=== PATIENT | male | born 1935 | race Caucasian/White ===

== ENCOUNTER 2016-08-21 11:15 | Outpatient (CLI) | payer MEDICARE, BC ==
[~2016-08-21 11:15] MED LIST: ASPI81TA2 PO; ATOR40TA PO; BENZ0.5T3 PO; CARV3.122 PO; DULO60CA45 PO; FINA5TAB4 PO; LATA2.5D2 EACHEYE; OLAN10TA3 PO; PANT40TA4 PO; RISP0.253 PO; TAMS-12 PO
== END 2016-08-21 23:59 | disposition home health service (06) ==
LOC: WOU 11:15
PROVIDERS: ATTEND Surgery
DX: T81.31XA Disruption of external operation (surgical) wound, not elsewhere classified, initial encounter (principal); Z93.2 Ileostomy status; E78.5 Hyperlipidemia, unspecified; I35.0 Nonrheumatic aortic (valve) stenosis; F32.9 Major depressive disorder, single episode, unspecified; F03.90 Unspecified dementia, unspecified severity, without behavioral disturbance, psychotic disturbance, mood disturbance, and anxiety
CPT/HCPCS: 11042; A6402

== ENCOUNTER 2016-09-11 12:45 | Outpatient (CLI) | payer MEDICARE, BC | END 2016-09-11 23:59 | disposition home health service (06) | LOC: WOU 12:45 | PROVIDERS: ATTEND Surgery | PROC: 0HBCXZX Excision of Left Upper Arm Skin, External Approach, Diagnostic (ICD-10-PCS; principal; 2016-09-11) | DX: C44.629 Squamous cell carcinoma of skin of left upper limb, including shoulder (principal); F03.90 Unspecified dementia, unspecified severity, without behavioral disturbance, psychotic disturbance, mood disturbance, and anxiety; Z93.2 Ileostomy status; Z87.891 Personal history of nicotine dependence; F32.9 Major depressive disorder, single episode, unspecified; Z85.828 Personal history of other malignant neoplasm of skin; E78.5 Hyperlipidemia, unspecified; I35.0 Nonrheumatic aortic (valve) stenosis; Z79.899 Other long term (current) drug therapy; T81.31XD Disruption of external operation (surgical) wound, not elsewhere classified, subsequent encounter | CPT/HCPCS: 11100; 88305 ×2; 88342; A6402; J3490 ==

== ENCOUNTER 2016-09-24 10:17 | Inpatient (IN) | payer MEDICARE, BC ==
[~2016-09-24] VITALS: Ht 162.6 cm; Wt 47.6 kg
[2016-09-24 10:55] LABS: BASOPHILS # (AUTO) 0.1 /CMM (0.0-0.2); BASOPHILS % (AUTO) 1.4 % (0.0-2.0); DIFF TOTAL % 100 %; EOSINOPHILS # (AUTO) 0.1 /CMM (0.0-0.7); EOSINOPHILS % (AUTO) 0.8 % (0.0-6.0); HEMATOCRIT 43 % (39-51); LYMPHOCYTES % (AUTO) 11.9 % (20.0-44.0); MEAN CORPUSCULAR HEMOGLOBIN 28 PG (26.0-33.0); MEAN CORPUSCULAR HGB CONC 33 g/dl (31.0-36.0); MEAN CORPUSCULAR VOLUME 86 fL (80-96); MONOCYTES # (AUTO) 0.6 /CMM (0.1-1.30); MONOCYTES % (AUTO) 6.9 % (2.0-12.0); NEUTROPHILS # (AUTO) 6.4 /CMM (1.8-8.9); PLATELET COUNT (AUTO) 271 /CMM (150-450); RED BLOOD CELL COUNT(AUTO) 4.99 MIL/uL (4.5-6.0); WHITE BLOOD COUNT (AUTO) 8.2 K/uL (4.3-11.0)
[2016-09-24 11:10] LABS: INR 0.99 (0.87-1.13); PROTHROMBIN TIME 10.4 SECS (9.5-12.7)
[2016-09-24] MEDS ORDERED: MIRT15TA7 PO (11:15)
[2016-09-24] MEDS ORDERED: BENZ0.5T3 PO (11:15)
[2016-09-24] MEDS ORDERED: DOXA8TAB79 PO (11:15)
[2016-09-24] MEDS ORDERED: MULT-1168 PO (11:19)
[2016-09-24] MEDS ORDERED: KETO120S2 TP (11:19)
[2016-09-24 11:27] LABS: BILIRUBIN,DIRECT 0.1 mg/dL (0.0-0.2); BILIRUBIN,TOTAL 0.3 mg/dL (0.2-1.0); CREATININE 1.2 mg/dL (0.6-1.3); INDIRECT BILIRUBIN 0.2 mg/dL (0.0-1.1); POTASSIUM 4.9 mmol/L (3.5-5.1); TOTAL PROTEIN, SERUM 8.2 g/dL (6.4-8.2)
[2016-09-24 11:31] LABS: CALCIUM, SERUM 14.4 mg/dL (8.5-10.1)
[2016-09-24] MEDS ORDERED: IV NS 0.9% 1,000 ML BAG IV ONE (12:00)
[2016-09-24] MEDS ORDERED: IV NS 0.9% 1,000 ML ONE (12:02)
[2016-09-24] MEDS ORDERED: IV SET PRIMARY 1 EA INFUS.SET MC ONE (12:02)
[2016-09-24 12:30] VITALS: BP 122/68
[2016-09-24] MEDS ORDERED: IV D5/0.45 NACL 1,000 ML IV PRN (13:27)
[2016-09-24] MEDS ORDERED: ACETAMINOPHEN 325 MG TABLET PO PRN (13:30)
[2016-09-24] MEDS ORDERED: ONDANSETRON HCL/PF 4 MG/2 ML VIAL IVP PRN (13:30)
[2016-09-24] MEDS ORDERED: MAGNESIUM HYDROXIDE 30 ML UDC PO PRN (13:30)
[2016-09-24] MEDS ORDERED: HYDROCODONE/APAP 5/325MG 1 EACH TABLET PO PRN (13:30)
[2016-09-24] MEDS ORDERED: MAG HYDROX/AL HYDROX/SIMETH 30 ML UDC PO PRN (13:30)
[2016-09-24] MEDS ORDERED: ZOLPIDEM TARTRATE 5 MG TABLET PO PRN (13:30)
[2016-09-24] MEDS ORDERED: Z GUARD REMEDY 2 OZ OINT TP PRN (13:30)
[2016-09-24] MEDS ORDERED: IV SET PRIMARY PUMP SET 1 EA INFUS.SET MC ONE (15:43)
[2016-09-24 16:00] VITALS: BP 122/68
[2016-09-24 20:00] VITALS: BP 132/72
[2016-09-24] MEDS: MIRTAZAPINE 15 MG TABLET PO SCH (21:11)
[2016-09-25 06:35] LABS: BASOPHILS % (AUTO) 0.2 % (0.0-2.0); DIFF TOTAL % 100 %; EOSINOPHILS # (AUTO) 0.1 /CMM (0.0-0.7); EOSINOPHILS % (AUTO) 0.7 % (0.0-6.0); HEMATOCRIT 37 % (39-51); HEMOGLOBIN 11.9 g/dL (13.5-17.5); LYMPHOCYTES # (AUTO) 0.7 /CMM (0.8-4.8); LYMPHOCYTES % (AUTO) 9.3 % (20.0-44.0); MEAN CORPUSCULAR HEMOGLOBIN 28 PG (26.0-33.0); MEAN CORPUSCULAR HGB CONC 33 g/dl (31.0-36.0); MEAN CORPUSCULAR VOLUME 86 fL (80-96); MONOCYTES # (AUTO) 0.8 /CMM (0.1-1.30); MONOCYTES % (AUTO) 9.7 % (2.0-12.0); NEUTROPHILS # (AUTO) 6.2 /CMM (1.8-8.9); NEUTROPHILS % (AUTO) 80.1 % (43.0-81.0); PLATELET COUNT (AUTO) 258 /CMM (150-450); RED BLOOD CELL COUNT(AUTO) 4.26 MIL/uL (4.5-6.0); WHITE BLOOD COUNT (AUTO) 7.8 K/uL (4.3-11.0)
[2016-09-25 06:40] LABS: INR 1.02 (0.87-1.13)
[2016-09-25 06:55] LABS: ALBUMIN 2.4 g/dL (3.4-5.0); BILIRUBIN,TOTAL 0.3 mg/dL (0.2-1.0); CALCIUM, SERUM 12.7 mg/dL (8.5-10.1); CREATININE 0.9 mg/dL (0.6-1.3); PHOSPHORUS 2.6 mg/dL (2.5-4.9); POTASSIUM 4.5 mmol/L (3.5-5.1); TOTAL PROTEIN, SERUM 6.5 g/dL (6.4-8.2)
[2016-09-25 07:02] LABS: THYROID STIMULATING HORMONE 3.965 uIU/mL (0.358-3.74)
[2016-09-25] MEDS ORDERED: BUPIVACAINE 0.5 % PF 150 MG/30 ML VIAL ONE (07:05)
[2016-09-25] MEDS ORDERED: FENTANYL PF 100MCG/2ML AMPUL ONE (07:19)
[2016-09-25] MEDS ORDERED: MIDAZOLAM HCL 2 MG/2ML VIAL ONE (07:20)
[2016-09-25 07:21] VITALS: BP 114/66
[2016-09-25] MEDS ORDERED: LIDOCAINE HCL/PF 1% 30 ML SDV ONE (07:24)
[2016-09-25] MEDS ORDERED: NEOMY SULF/BACITRAC ZN/POLY 15 GM TUBE TP ONE (07:46)
[2016-09-25] MEDS ORDERED: BACITRACIN 50000 UNITS/VIAL ONE (07:49)
[2016-09-25] MEDS ORDERED: BUPIVACAINE MPF 0.5% W/EPI INJ 30 ML VIAL ONE (08:12)
[2016-09-25] MEDS: PANTOPRAZOLE 40 MG TABLET.DR PO SCH (09:05)
[2016-09-25] MEDS ORDERED: SECONDARY IV SET 1 EA INFUS.SET MC ONE (10:25)
[2016-09-25] MEDS: Magnesium 1GM/D5W 100ML PREMIX 100 ML IV SCH ×2 (10:39→11:50)
[2016-09-25] MEDS: IV D5/0.45 NACL 1,000 ML IV PRN (15:44)
[2016-09-25 16:00] VITALS: BP 127/82
[2016-09-25 20:00] VITALS: BP 96/54
[2016-09-25] MEDS: MIRTAZAPINE 15 MG TABLET PO SCH (22:13)
[2016-09-26] MEDS: IV D5/0.45 NACL 1,000 ML IV PRN ×2 (01:17→13:29)
[2016-09-26 06:27] LABS: DIFF TOTAL % 100 %; EOSINOPHILS # (AUTO) 0.1 /CMM (0.0-0.7); EOSINOPHILS % (AUTO) 0.8 % (0.0-6.0); HEMATOCRIT 36 % (39-51); HEMOGLOBIN 11.8 g/dL (13.5-17.5); LYMPHOCYTES # (AUTO) 0.7 /CMM (0.8-4.8); LYMPHOCYTES % (AUTO) 8.7 % (20.0-44.0); MEAN CORPUSCULAR HEMOGLOBIN 28 PG (26.0-33.0); MEAN CORPUSCULAR HGB CONC 33 g/dl (31.0-36.0); MEAN CORPUSCULAR VOLUME 87 fL (80-96); MONOCYTES # (AUTO) 0.7 /CMM (0.1-1.30); MONOCYTES % (AUTO) 7.7 % (2.0-12.0); NEUTROPHILS # (AUTO) 7.1 /CMM (1.8-8.9); NEUTROPHILS % (AUTO) 82.8 % (43.0-81.0); PLATELET COUNT (AUTO) 252 /CMM (150-450); WHITE BLOOD COUNT (AUTO) 8.6 K/uL (4.3-11.0)
[2016-09-26 06:38] LABS: ALBUMIN 2.2 g/dL (3.4-5.0); BILIRUBIN,TOTAL 0.2 mg/dL (0.2-1.0); CALCIUM, SERUM 11.9 mg/dL (8.5-10.1); CREATININE 0.9 mg/dL (0.6-1.3); PHOSPHORUS 1.9 mg/dL (2.5-4.9); POTASSIUM 3.6 mmol/L (3.5-5.1); TOTAL PROTEIN, SERUM 6.4 g/dL (6.4-8.2)
[2016-09-26 06:47] LABS: %FREE PSA 17.1 % (0-10); FREE PSA 0.17 ng/mL (0.00-45)
[2016-09-26 08:00] VITALS: BP 121/73
[2016-09-26] MEDS: PANTOPRAZOLE 40 MG TABLET.DR PO SCH (08:25)
[2016-09-26] MEDS: SERTRALINE HCL 50 MG TABLET PO SCH (08:25)
[2016-09-26] MEDS ORDERED: NEUTRA PHOS 1 POWD.PACKET PO ONE (10:30)
[2016-09-26] MEDS ORDERED: Magnesium 1GM/D5W 100ML PREMIX 100 ML IV SCH (10:30)
[2016-09-26] MEDS ORDERED: SECONDARY IV SET 1 EA INFUS.SET MC ONE (10:45)
[2016-09-26] MEDS: NEOMY SULF/BACITRAC ZN/POLY 15 GM TUBE TP SCH (13:24)
[2016-09-26 16:00] VITALS: BP 98/58
[2016-09-26 20:00] VITALS: BP 103/59
[2016-09-26] MEDS: MIRTAZAPINE 15 MG TABLET PO SCH (22:10)
[2016-09-27] MEDS: IV D5/0.45 NACL 1,000 ML IV PRN (01:46)
[2016-09-27 07:28] LABS: BASOPHILS % (AUTO) 0.3 % (0.0-2.0); DIFF TOTAL % 100 %; EOSINOPHILS # (AUTO) 0.1 /CMM (0.0-0.7); EOSINOPHILS % (AUTO) 0.6 % (0.0-6.0); HEMATOCRIT 36 % (39-51); HEMOGLOBIN 11.8 g/dL (13.5-17.5); LYMPHOCYTES # (AUTO) 0.9 /CMM (0.8-4.8); LYMPHOCYTES % (AUTO) 8.9 % (20.0-44.0); MEAN CORPUSCULAR HEMOGLOBIN 29 PG (26.0-33.0); MEAN CORPUSCULAR HGB CONC 33 g/dl (31.0-36.0); MEAN CORPUSCULAR VOLUME 87 fL (80-96); MONOCYTES # (AUTO) 0.8 /CMM (0.1-1.30); MONOCYTES % (AUTO) 7.7 % (2.0-12.0); NEUTROPHILS # (AUTO) 8.8 /CMM (1.8-8.9); NEUTROPHILS % (AUTO) 82.5 % (43.0-81.0); PLATELET COUNT (AUTO) 232 /CMM (150-450); RED BLOOD CELL COUNT(AUTO) 4.16 MIL/uL (4.5-6.0); WHITE BLOOD COUNT (AUTO) 10.7 K/uL (4.3-11.0)
[2016-09-27 07:55] LABS: CALCIUM, SERUM 11.7 mg/dL (8.5-10.1); CREATININE 0.9 mg/dL (0.6-1.3); PHOSPHORUS 2.1 mg/dL (2.5-4.9); POTASSIUM 3.9 mmol/L (3.5-5.1)
[2016-09-27 08:00] VITALS: BP 120/64
[2016-09-27] MEDS: NEOMY SULF/BACITRAC ZN/POLY 15 GM TUBE TP SCH (08:13)
[2016-09-27] MEDS: SERTRALINE HCL 50 MG TABLET PO SCH (08:13)
[2016-09-27] MEDS: PANTOPRAZOLE 40 MG TABLET.DR PO SCH (08:13)
[2016-09-27 11:22] LABS: VIT D, 25-HYDROXY 44.7 ng/mL (30.0-100.0)
[2016-09-27] MEDS ORDERED: ASPIRIN 81 MG TAB.CHEW PO SCH (11:26)
[2016-09-27] MEDS ORDERED: NEUTRA PHOS 1 POWD.PACKET PO ONE (11:30)
[2016-09-27 14:21] LABS: PTH, INTACT 11 pg/mL (15-65)
[2016-09-30 06:09] LABS: *SPE ALBUMIN 2.4 g/dL (2.9-4.4)
== END 2016-09-27 11:45 | DRG 570 ==
LOC: ER 10:19 → MED 11:50
PROVIDERS: ADMIT Internal Medicine; ATTEND Internal Medicine
PROC: 0HB6XZZ Excision of Back Skin, External Approach (ICD-10-PCS; principal; 2016-09-25 07:30)
DX: C44.529 Squamous cell carcinoma of skin of other part of trunk (principal); N17.0 Acute kidney failure with tubular necrosis; G93.40 Encephalopathy, unspecified; I50.22 Chronic systolic (congestive) heart failure; F33.2 Major depressive disorder, recurrent severe without psychotic features; E87.0 Hyperosmolality and hypernatremia; C79.89 Secondary malignant neoplasm of other specified sites; E78.5 Hyperlipidemia, unspecified; F03.90 Unspecified dementia, unspecified severity, without behavioral disturbance, psychotic disturbance, mood disturbance, and anxiety; E83.52 Hypercalcemia; H40.9 Unspecified glaucoma; I25.10 Atherosclerotic heart disease of native coronary artery without angina pectoris; N40.0 Benign prostatic hyperplasia without lower urinary tract symptoms; I35.0 Nonrheumatic aortic (valve) stenosis; I11.0 Hypertensive heart disease with heart failure; L89.151 Pressure ulcer of sacral region, stage 1; L98.9 Disorder of the skin and subcutaneous tissue, unspecified; L89.621 Pressure ulcer of left heel, stage 1; L89.611 Pressure ulcer of right heel, stage 1
CPT/HCPCS: 36415; 71010-TC; 71250-TC; 72192-TC; 74150-TC; 80048-TC; 80053-TC; 80061-TC; 80076-TC; 82272-TC; 82306; 82550-TC; 82652; 82746; 83540-TC; 83735-TC; 83970; 84100-TC; 84153-TC; 84154-TC; 84155; 84165; 84443-TC; 85025-TC; 85730-TC; 86850-TC; 87081-TC; 88305-TC; 92521; 97001-TC; 97003-TC; A4606; A6402; J2250; J3010; J3475; J3490; J7030; Z7610

== ENCOUNTER 2016-09-28 09:29 | Emergency (ER) | payer MEDICARE, BC ==
[~2016-09-28] VITALS: Ht 165.1 cm; Wt 47.6 kg
[~2016-09-28 09:29] MED LIST changes: +DOXA8TAB79 PO; +KETO120S2 TP; +MIRT15TA7 PO; +MULT-1168 PO
[2016-09-28] MEDS ORDERED: IV SET PRIMARY 1 EA INFUS.SET MC ONE (09:58)
[2016-09-28] MEDS ORDERED: IV NS 0.9% 500 ML IV ONE (09:58)
[2016-09-28] MEDS ORDERED: IV NS 0.9% 500 ML BAG IV ONE (10:00)
[2016-09-28 10:02] LABS: BASOPHILS # (AUTO) 0.1 /CMM (0.0-0.2); BASOPHILS % (AUTO) 0.8 % (0.0-2.0); DIFF TOTAL % 100 %; EOSINOPHILS # (AUTO) 0.1 /CMM (0.0-0.7); EOSINOPHILS % (AUTO) 1.2 % (0.0-6.0); HEMATOCRIT 36 % (39-51); HEMOGLOBIN 11.8 g/dL (13.5-17.5); LYMPHOCYTES # (AUTO) 0.9 /CMM (0.8-4.8); LYMPHOCYTES % (AUTO) 9.3 % (20.0-44.0); MEAN CORPUSCULAR HEMOGLOBIN 28 PG (26.0-33.0); MEAN CORPUSCULAR HGB CONC 33 g/dl (31.0-36.0); MEAN CORPUSCULAR VOLUME 86 fL (80-96); MONOCYTES # (AUTO) 0.8 /CMM (0.1-1.30); NEUTROPHILS # (AUTO) 8.1 /CMM (1.8-8.9); NEUTROPHILS % (AUTO) 80.7 % (43.0-81.0); PLATELET COUNT (AUTO) 210 /CMM (150-450); RED BLOOD CELL COUNT(AUTO) 4.15 MIL/uL (4.5-6.0)
[2016-09-28 10:12] LABS: CALCIUM, SERUM 11.6 mg/dL (8.5-10.1); CREATININE 1.1 mg/dL (0.6-1.3); POTASSIUM 4.5 mmol/L (3.5-5.1)
[2016-09-28 10:16] LABS: INR 1.01 (0.87-1.13); PROTHROMBIN TIME 10.6 SECS (9.5-12.7)
[2016-09-28 10:22] LABS: TROPONIN I 0.03 ng/mL (0.00-0.056)
[2016-09-28 11:53] LABS: ADD UA MICROSCOPIC NO; KETONES,URINE Negative (NEGATIVE); LEUKOCYTE ESTERASE ,URINE Negative (NEGATIVE)
[2016-09-28 12:41] VITALS: BP 107/46
== END 2016-09-28 12:47 | disposition home or self-care (01) ==
LOC: ER 09:31
DX: S01.91XA Laceration without foreign body of unspecified part of head, initial encounter (principal); R51 Headache; I10 Essential (primary) hypertension; I35.0 Nonrheumatic aortic (valve) stenosis; E78.5 Hyperlipidemia, unspecified; H40.9 Unspecified glaucoma; C44.90 Unspecified malignant neoplasm of skin, unspecified; Z88.5 Allergy status to narcotic agent; Z88.8 Allergy status to other drugs, medicaments and biological substances; Z79.82 Long term (current) use of aspirin; R79.1 Abnormal coagulation profile; W18.39XA Other fall on same level, initial encounter; Y93.89 Activity, other specified; Y92.121 Bathroom in nursing home as the place of occurrence of the external cause; Y99.8 Other external cause status
CPT/HCPCS: 12001; 36415; 51702; 70450; 71010; 72125; 80048; 81001; 82962; 84484; 85025; 85730; 93005; 99285; A4606; A6402; A6403; J7040; 81000-TC; Z7610

== ENCOUNTER 2016-10-02 12:29 | Outpatient (CLI) | payer MEDICARE, BC ==
[~2016-10-02 12:29] MED LIST changes: -OLAN10TA3 PO
== END 2016-10-02 23:59 | disposition home health service (06) ==
LOC: WOU 12:29
PROVIDERS: ATTEND Surgery
DX: C44.629 Squamous cell carcinoma of skin of left upper limb, including shoulder (principal); F03.90 Unspecified dementia, unspecified severity, without behavioral disturbance, psychotic disturbance, mood disturbance, and anxiety; Z93.2 Ileostomy status; Z87.891 Personal history of nicotine dependence; F32.9 Major depressive disorder, single episode, unspecified; Z85.828 Personal history of other malignant neoplasm of skin; E78.5 Hyperlipidemia, unspecified; I35.0 Nonrheumatic aortic (valve) stenosis; Z79.899 Other long term (current) drug therapy; S01.91XD Laceration without foreign body of unspecified part of head, subsequent encounter; X58.XXXD Exposure to other specified factors, subsequent encounter
CPT/HCPCS: A6402; G0463